=== PATIENT | female | born 1995 | race American Indian/Alaskan Native ===

== ENCOUNTER 2016-06-13 19:09 | Emergency (ER) | payer SELFPAY ==
[2016-06-13 19:58] VITALS: BP 151/104
[2016-06-13 20:25] LABS: Basophils % (Auto) 0.2 % (0.0-1.8); Hematocrit 36.8 % (30.3-42.9); Hemoglobin 11.3 gm/dl (10.1-14.3); Mean Corpuscular HGB Conc 31 % (30-34); Mean Corpuscular Hemoglobin 23 pg (28-32); Mean Corpuscular Volume 74 fl (79-97); Platelet Count 294 K/mm3 (140-440); Red Blood Count 4.97 M/mm3 (3.65-5.03); Red Cell Distribution Width 14.7 % (13.2-15.2); White Blood Count 11.7 K/mm3 (4.5-11.0)
[2016-06-13 20:59] LABS: Bilirubin,Urine NEG (Negative); Blood,Urine MOD (Negative); Ketones,Urine 80 mg/dL (Negative); Leukocyte Esterase,Urine TR (Negative); Mucus,Urine 3+ /HPF; Nitrite,Urine NEG (Negative); Urobilinogen,Urine < 2.0 mg/dL (<2.0)
[2016-06-13] MEDS ORDERED: NACL 0.9% 1000 ML 1,000 ML IV ONE (21:00)
[2016-06-13 21:20] LABS: Alanine Aminotransferase 16 units/L (7-56); Albumin 4.6 g/dL (3.9-5); Albumin/Globulin Ratio 1.4 %; Alkaline Phosphatase 93 units/L (35-129); Anion Gap 25 mmol/L; BUN/Creatinine Ratio 21.66; Bilirubin,Total 0.4 mg/dL (0.1-1.2); Blood Urea Nitrogen 13 mg/dL (7-17); Calcium 9.6 mg/dL (8.4-10.2); Carbon Dioxide 17 mmol/L (22-30); Chloride 100.7 mmol/L (98-107); Glucose 147 mg/dL (65-100); Lipase 14 units/L (13-60); Potassium 3.4 mmol/L (3.6-5.0); Sodium 139 mmol/L (137-145); Total Protein 7.8 g/dL (6.3-8.2)
--- NOTE | 2016-06-14 00:02 | Ultrasound Report ---
FINAL REPORT PROCEDURE: Transabdominal pelvic ultrasound. TECHNIQUE: Real-time transabdominal sonography in multiple planes of pelvis was performed with image documentation. This examination was performed without Doppler. Vascular abnormalities, including ovarian torsion, will not be detectable without Doppler evaluation. CPT 58106 HISTORY: Lower abdominal pain. COMPARISON: No prior studies are available for comparison. FINDINGS: The uterus measures 7.2 centimeters x 4.3 centimeters x 4.2 centimeters. There is a rounded mass of predominantly hypoechogenicity in the anterior portion of the lower uterine body. This measures 2.7 centimeters in maximum dimension. It is consistent with a uterine leiomyoma. The endometrial echo complex is poorly defined. The ovaries are not adequately visualized. IMPRESSION: Uterine leiomyoma.
--- NOTE | 2016-06-14 00:04 | Ultrasound Report ---
FINAL REPORT PROCEDURE: Transvaginal pelvic ultrasound. TECHNIQUE: Real-time transvaginal sonography in multiple planes of the pelvis was performed with image documentation. This examination was performed without Doppler. Vascular abnormalities, including ovarian torsion, will not be detectable without Doppler evaluation. CPT 55370 HISTORY: Lower abdominal pain. COMPARISON: No prior studies are available for comparison. FINDINGS: There is a focal mass in the anterior portion of the lower uterine body. This measures 2.7 centimeters in maximum dimension. It is consistent with a leiomyoma. Both ovaries appear normal in size and contain small follicles. There is no fluid in the cul-de-sac. IMPRESSION: Uterine fibroid. Otherwise normal study.
--- NOTE | 2016-06-14 13:35 | ED Elopement Review ---
ED Pt Elopement review - Results review Lab results: Laboratory Tests 06/13/16 06/13/16 06/13/16 20:09 20:09 20:40 WBC 11.7 H RBC 4.97 Hgb 11.3 Hct 36.8 MCV 74 L MCH 23 L MCHC 31 RDW 14.7 Plt Count 294 Lymph % (Auto) 9.1 L Caroline % (Auto) 4.6 Eos % (Auto) 0.0 Baso % (Auto) 0.2 Lymph # 1.1 L Caroline # 0.5 Eos # 0.0 Baso # 0.0 Seg Neutrophils % 86.1 H Seg Neutrophils # 10.1 H Sodium 139 Potassium 3.4 L Chloride 100.7 Carbon Dioxide 17 L Anion Gap 25 BUN 13 Creatinine 0.6 L Estimated GFR > 60 BUN/Creatinine Ratio 21.66 Glucose 147 H Calcium 9.6 Total Bilirubin 0.4 AST 23 ALT 16 Alkaline Phosphatase 93 Total Protein 7.8 Albumin 4.6 Albumin/Globulin Ratio 1.4 Lipase 14 Urine Color Yellow Urine Turbidity Clear Urine pH 6.0 Ur Specific Fields 1.033 H Urine Protein 100 mg/dl Urine Glucose (UA) Neg Urine Ketones 80 Urine Blood Mod Urine Nitrite Neg Urine Bilirubin Neg Urine Urobilinogen < 2.0 Ur Leukocyte Esterase Tr Urine WBC (Auto) 3.0 Urine RBC (Auto) 3.0 U Epithel Cells (Auto) 3.0 Urine Mucus 3+ Urine HCG, Qual Negative - Call Back decision Pt Call Back Decision: Pt to F/U with PMD
== END 2016-06-14 00:24 | disposition left against medical advice (07) ==
LOC: ED 19:09
DX: R11.10 Vomiting, unspecified (principal); R10.30 Lower abdominal pain, unspecified; Z53.21 Procedure and treatment not carried out due to patient leaving prior to being seen by health care provider
CPT/HCPCS: 36415; 76830; 76856; 80053; 81001; 81025; 83690; 85025; J7030